=== PATIENT | female | born 1960 | race Caucasian/White ===

== ENCOUNTER 2019-02-22 07:07 | Day surgery (SDC) | payer OTHER ==
[~2019-02-22 07:07] MED LIST: ADULT ASPIRIN81 MG PO; CLONAZEPAM2 MG PO; LISINOPRIL PO; PAXIL20 MG PO; SYNTHROID50 MCG PO; TEMAZEPAM15 MG PO
== END 2019-02-22 17:50 | disposition home or self-care (01) ==
LOC: CIR.AMB 07:07
DX: N84.0 Polyp of corpus uteri (principal)

== ENCOUNTER 2021-07-17 08:30 | Outpatient (CLI) | payer OTHER | END 2021-07-17 08:34 | disposition home or self-care (01) | LOC: SONOGRAMA 08:30 | PROVIDERS: ATTEND Pathology Anatomic Pathology & Clinical Pathology | DX: E07.89 Other specified disorders of thyroid (principal); E04.1 Nontoxic single thyroid nodule; D34 Benign neoplasm of thyroid gland ==